=== PATIENT | female | born 1950 | race Caucasian/White ===

== ENCOUNTER 2017-01-22 08:47 | Outpatient (CLI) | payer OTHER | END 2017-01-22 08:48 | LOC: NAVSJIPCSP 08:47 | PROVIDERS: ATTEND Internal Medicine | DX: Z51.81 Encounter for therapeutic drug level monitoring (principal); Z79.899 Other long term (current) drug therapy | CPT/HCPCS: 36415; 80061; 84443 ==

== ENCOUNTER 2021-02-15 08:28 | Outpatient (CLI) | payer MEDICARE, OTHER ==
[2021-02-15] MEDS ORDERED: Iopamidol 370 76% 100 ML VIAL ONE (09:00)
== END 2021-02-15 08:29 | disposition home or self-care (01) ==
LOC: NAV CT 08:28
PROVIDERS: ATTEND Internal Medicine
DX: K58.1 Irritable bowel syndrome with constipation (principal); K76.89 Other specified diseases of liver
CPT/HCPCS: 74177; Q9967

== ENCOUNTER 2021-03-02 05:23 | Emergency (ER) | payer MEDICARE ==
[2021-03-02] MEDS ORDERED: diphenhydrAMINE 50 MG/ML VIAL ONE (05:58)
[2021-03-02] MEDS ORDERED: Diazepam 10 MG/2 ML SYRINGE ONE (05:58)
[2021-03-02] MEDS ORDERED: traMADol HCl 50 MG TAB ONE (06:49)
[2021-03-02] MEDS ORDERED: predniSONE 20 MG TAB ONE (06:49)
== END 2021-03-02 07:15 | disposition home or self-care (01) ==
LOC: NAV ERS 05:23
DX: M19.09 Primary osteoarthritis, other specified site (principal); E03.9 Hypothyroidism, unspecified; K21.9 Gastro-esophageal reflux disease without esophagitis; K58.9 Irritable bowel syndrome, unspecified; E78.5 Hyperlipidemia, unspecified; E78.00 Pure hypercholesterolemia, unspecified; I10 Essential (primary) hypertension; Z87.891 Personal history of nicotine dependence; Z79.82 Long term (current) use of aspirin; Z79.899 Other long term (current) drug therapy
CPT/HCPCS: 96372; 99283; J1200; J3360; J7512

== ENCOUNTER 2024-05-16 14:14 | Outpatient (CLI) | payer MEDICARE, OTHER | END 2024-05-16 14:15 | disposition home or self-care (01) | LOC: NAV RAD 14:14 | PROVIDERS: ATTEND Family Medicine | DX: S99.922A Unspecified injury of left foot, initial encounter (principal) ==